=== PATIENT | female | born 1940 | race Caucasian/White ===

== ENCOUNTER 2024-05-16 13:01 | Outpatient (OUT) | payer MEDICARE, SELFPAY ==
--- NOTE | 2024-05-16 | FL_ITS ---
The [address] [address] Patient Name: TAMEKA VENCES MRN: [id number] date: 1940 Sex: F Assigned Patient Location: [place] Current Patient Location: [place] Accession/Order Number: [id number] Exam Date: 05/16/2024 13:10 Report Date: 05/16/2024 16:33 At the request of: NON-STAFF PHYSICIAN Procedure: FL modified barium swallow EXAMINATION: MA modified barium swallow HISTORY: Dysphagia R13.19 COMPARISON: No relevant comparison available. TECHNIQUE: A swallowing evaluation was performed with fluoroscopy in the usual manner. Standard level fluoroscopic mode of operation utilized. FINDINGS: ORAL PHASE: Normal deglutition. PHARYNGEAL PHASE: Normal swallowing. ASPIRATION: None. STRUCTURE: Normal. No visible obstruction, stricture, or dilatation. OTHER: Negative. FL/FL modified barium swallow IMPRESSION: 1. Normal examination. 2. Please see speech pathologist report for additional discussion. Electronically authenticated by: DEMIAN COLON Date: 05/16/2024 16:33
== END 2024-05-16 13:02 | disposition home or self-care (01) ==
DX: R13.19 Other dysphagia (principal)
CPT/HCPCS: 74230; 76120; 92611